=== PATIENT | male | born 1975 | race African-American/Black ===

== ENCOUNTER 2017-03-30 15:43 | Observation (INO) | payer SELFPAY ==
[2017-03-30 15:51] VITALS: BMI 24.0
[2017-03-30] MEDS ORDERED: NITROSTAT SL PRN (16:08)
--- NOTE | 2017-03-30 16:13 | DR.CP ---
HPI - Time Seen Time seen: 15:50 - PCP Primary Care Physician: NFD - Complaint Chief Complaint Doctor Comments: Patient admits to chest pain while at work today. He states that the pain was inferior left breast, intermittent crampy like. Denies history of cardiac disease. Admits to high cholesterol. He smokes but not a pack per day. He denies alcohol. There is no family history of cardiac disease. Chief Complaint:: PT C/O CHEST PAIN FOR ABOUT THE LAST 30 MINUTES. PT STATES IT FEELS LIKE PRESSURE. - Source History Provided: Patient - Mode of Arrival Mode of Arrival: Ambulatory - Timing Onset of Chief Complaint: 03/30/17 - Location Chest Pain Radiation Location: None - Associated Signs and Symptoms Associated Signs and Symptoms: None PMH - PMH Past Medical History: Yes Past Medical History: Dyslipidemia Past Surgical History: No - Family History History of Family Medical Conditions: Yes Family Medical History: Cancer - Social History Type of Tobacco Use: None Does any household member use tobacco: No Alcohol Use: Occasionally Do you use any recreational Drugs:: No Lives With: Significant Other Lives Where: Home - infectious screening In the last 2 months have you had wt loss of >10#?: NO Have you had fever, night sweats or hemotysis?: No Have you traveled outside the country in the last 6 months?: No Isolation: Standard ROS - Review of Systems Eyes: No Symptoms Reported ENTM: No Symptoms Reported Respiratoy: No Symptoms Reported Cardiovascular: No Symptoms Reported Gastrointestinal/Abdominal: No Symptoms Reported Genitourinary: No Symptoms Reported Neurological: No Symptoms Reported Musculoskeletal: No Symptoms Reported Integumentary: No Symptoms Reported Hematologic/Lymphatic: No Symptoms Reported Endocrine: No Symptoms Reported Psychiatric: No Symptoms Reported All Other Systems: Reviewed and Negative PE - Vitals Vitals: Temperature 97.4 F Pulse Rate [Apical] 61 Pulse Rate 80 Respiratory Rate 14 Blood Pressure [Left Arm] 117/68 Blood Pressure 145/80 O2 Sat by Pulse Oximetry 100 - General Limitations: No Limitations General Appearance: Alert, In No Apparent Distress - Head Head Exam: Normal Inspection, Atraumatic - Eyes Eye exam: Normal Appearance, PERRL, EOMI - ENT ENT Exam: Normal Exam - Chest Chest Inspection: Normal Inspection, Symmetric Chest Wall Rise - Respiratory Respiratory Exam: Normal Lung Sounds Bilat Respiratory Exam: Bilateral Clear to Auscultation - Cardiovascular Cardiovascular Exam: Regular Rate, Normal Rhythm Pulse: Normal Edema: Normal - Abdominal Exam Abdominal Exam: Normal Inspection, Normal Bowel Sounds Abdominal Tenderness: negative: RUQ, RLQ, LUQ, LLQ, Epigastrium, Suprapubic, Diffuse, Mild, Moderate, Severe, Other - Extremities Extremities Exam: Normal Inspection, Full ROM - Back Back Exam: Normal Inspection - Neurologic Neurological Exam: Alert, Oriented X3, CN II-XII Intact - Psychiatric Psychiatric Exam: Normal Affect - Skin Skin Exam: Warm, Dry, Intact Course - Reevaluation 1st: Improved - Consultation Called: 17:30 (Dr Orozco agreed to admit for chest pain protocol) ROR - Labs Reviewed Result Diagrams: 03/30/17 16:28 03/30/17 16:28 Laboratory: WBC 4.9 X10^3/uL (3.6-10.0) 03/30/17 16:28 RBC 3.97 X10^6/uL (4.7-6.0) L 03/30/17 16:28 Hgb 12.5 g/dL (13.5-18.0) L 03/30/17 16:28 Hct 36.8 % (42.0-54.0) L 03/30/17 16:28 MCV 92.9 fL (80.0-100.0) 03/30/17 16:28 MCH 31.6 pg (27.0-34.0) 03/30/17 16:28 MCHC 34.0 g/dL (33.0-35.0) 03/30/17 16:28 RDW 12.2 % (11.6-16.5) 03/30/17 16:28 Plt Count 213 X10^3/uL (150.0-450.0) 03/30/17 16:28 MPV 8.8 fL (7.4-11.0) 03/30/17 16:28 Neut % 42.4 % (42.0-75.0) 03/30/17 16:28 Lymph % 47.7 % (21.0-51.0) 03/30/17 16:28 [place] % 7.1 % (0.0-13.0) 03/30/17 16:28 Eos % 1.6 % (0.9-2.9) 03/30/17 16:28 Baso % 1.2 % (0.2-1.0) H 03/30/17 16:28 Neut # 2.1 x10^3/uL (2.2-4.8) L 03/30/17 16:28 Lymph # 2.4 X10^3/uL (1.3-2.9) 03/30/17 16:28 [place] # 0.3 x10^3/uL (0.3-0.8) 03/30/17 16:28 Eos # 0.1 x10^3/uL (0.0-0.2) 03/30/17 16:28 Baso # 0.1 X10^3/uL (0.0-0.1) 03/30/17 16:28 Absolute Nucleated RBC 0.0 /100WBC 03/30/17 16:28 INR Target Range - 03/30/17 16:28 INR 0.91 (0.8-1.3) 03/30/17 16:28 Sodium 140 mmol/L (136-145) 03/30/17 16:28 Corrected Sodium TNP 03/30/17 16:28 Potassium 4.2 mmol/L (3.5-5.1) 03/30/17 16:28 Chloride 104 mmol/L (98-107) 03/30/17 16:28 Carbon Dioxide 30.7 mmol/L (21-32) 03/30/17 16:28 BUN 14 mg/dL (7-18) 03/30/17 16:28 Creatinine 1.36 mg/dL (0.70-1.30) H 03/30/17 16:28 Est GFR (MDRD) Af Amer > 60 (>60) 03/30/17 16:28 Est GFR (MDRD) Non-Af > 60 (>60) 03/30/17 16:28 Glucose 109 mg/dL (65-99) H 03/30/17 16:28 Calcium 9.1 mg/dL (8.5-10.1) 03/30/17 16:28 Corrected Calcium TNP 03/30/17 16:28 Magnesium 1.7 mg/dL (1.7-2.9) 03/30/17 16:28 Total Bilirubin 0.30 mg/dL (0.2-1.0) 03/30/17 16:28 AST 30 Units/L (15-37) 03/30/17 16:28 ALT 62 Units/L (12-78) 03/30/17 16:28 Alkaline Phosphatase 28 Units/L (46-116) L 03/30/17 16:28 Creatine Kinase 304 Units/L (39-308) 03/30/17 16:28 CK-MB (CK-2) 1.9 ng/mL (0-4.0) 03/30/17 16:28 CK/CKMB % Calc 0.6 % (<4) 03/30/17 16:28 Troponin I < 0.02 ng/mL (0-1.5) 03/30/17 16:28 Total Protein 7.4 g/dL (6.4-8.2) 03/30/17 16:28 Albumin 3.4 g/dL (3.4-5.0) 03/30/17 16:28 Globulin 4.0 g/dL (2.5-4.5) 03/30/17 16:28 Albumin/Globulin Ratio 0.9 Ratio (1.1-2.1) L 03/30/17 16:28 - XRAY XRAY Interpreted by: Radiologist (Chest: negative) - Diagnosis Discharge Problem: Chest pain Qualifiers: Chest pain type: unspecified Qualified Code(s): R07.9 - Chest pain, unspecified - Discharge Plan Condition: Stable - Follow ups/Referrals Follow ups/Referrals: NFD,None [Primary Care Provider] - 3 days - Instructions
[2017-03-30] MEDS: ASPIRIN PO SCH (16:21)
[2017-03-30 16:39] LABS: BASOPHILS # (AUTO) 0.1 X10^3/uL (0.0-0.1); BASOPHILS % (AUTO) 1.2 % (0.2-1.0); EOSINOPHILS # (AUTO) 0.1 x10^3/uL (0.0-0.2); EOSINOPHILS % (AUTO) 1.6 % (0.9-2.9); HEMATOCRIT 36.8 % (42.0-54.0); HEMOGLOBIN 12.5 g/dL (13.5-18.0); LYMPHOCYTES # (AUTO) 2.4 X10^3/uL (1.3-2.9); LYMPHOCYTES % (AUTO) 47.7 % (21.0-51.0); MEAN CORPUSCULAR HEMOGLOBIN 31.6 pg (27.0-34.0); MEAN CORPUSCULAR VOLUME 92.9 fL (80.0-100.0); MEAN PLATELET VOLUME 8.8 fL (7.4-11.0); MONOCYTES # (AUTO) 0.3 x10^3/uL (0.3-0.8); MONOCYTES % (AUTO) 7.1 % (0.0-13.0); NEUTROPHILS # (AUTO) 2.1 x10^3/uL (2.2-4.8); NEUTROPHILS % (AUTO) 42.4 % (42.0-75.0); PLATELET COUNT 213 X10^3/uL (150.0-450.0); RED BLOOD COUNT 3.97 X10^6/uL (4.7-6.0); RED CELL DISTRIBUTION WIDTH 12.2 % (11.6-16.5); WHITE BLOOD COUNT 4.9 X10^3/uL (3.6-10.0)
[2017-03-30 16:52] LABS: BLOOD UREA NITROGEN 14 mg/dL (7-18); CALCIUM 9.1 mg/dL (8.5-10.1); CARBON DIOXIDE 30.7 mmol/L (21-32); CHLORIDE 104 mmol/L (98-107); CREATININE 1.36 mg/dL (0.70-1.30); SODIUM 140 mmol/L (136-145); TROPONIN I < 0.02 ng/mL (0-1.5); eGFR BLACK RACES > 60 (>60); eGFR NON BLACK RACES > 60 (>60)
[2017-03-30 16:57] LABS: ALANINE AMINOTRANSFERASE 62 Units/L (12-78); ALBUMIN 3.4 g/dL (3.4-5.0); ALKALINE PHOSPHATASE 28 Units/L (46-116); ASPARTATE AMINO TRANSFERASE 30 Units/L (15-37); CKMB % 0.6 % (<4); CREATINE KINASE 304 Units/L (39-308); CREATINE KINASE MB 1.9 ng/mL (0-4.0); MAGNESIUM 1.7 mg/dL (1.7-2.9); TOTAL PROTEIN 7.4 g/dL (6.4-8.2)
[2017-03-30] MEDS: NS 1000 ML 1,000 ML IV SCH (16:58)
--- NOTE | 2017-03-30 17:12 | RAD ---
HISTORY: Hyperlipidemia. Study: Portable chest. Comparison: None. Findings: The trachea is midline. The cardiac silhouette is unremarkable. No obvious focal consolidation, ple ural effusion, or pneumothorax.. The bony thorax is unremarkable. IMPRESSION: No acute cardiopulmonary disease. Reported By:
[2017-03-30] MEDS ORDERED: ZOFRAN INJ 4 MG VIAL IVP PRN (17:43)
[2017-03-30 22:21] LABS: CKMB % 0.6 % (<4); CREATINE KINASE 262 Units/L (39-308); CREATINE KINASE MB 1.6 ng/mL (0-4.0); TROPONIN I < 0.02 ng/mL (0-1.5)
[2017-03-31] MEDS: NS 1000 ML 1,000 ML IV SCH ×2 (00:09→10:39)
[2017-03-31 05:17] LABS: BASOPHILS # (AUTO) 0.1 X10^3/uL (0.0-0.1); BASOPHILS % (AUTO) 1.4 % (0.2-1.0); EOSINOPHILS # (AUTO) 0.1 x10^3/uL (0.0-0.2); EOSINOPHILS % (AUTO) 2.3 % (0.9-2.9); HEMOGLOBIN 12.6 g/dL (13.5-18.0); LYMPHOCYTES # (AUTO) 2.5 X10^3/uL (1.3-2.9); LYMPHOCYTES % (AUTO) 50.8 % (21.0-51.0); MEAN CORPUSCULAR HGB CONC 34.2 g/dL (33.0-35.0); MEAN CORPUSCULAR VOLUME 93.7 fL (80.0-100.0); MEAN PLATELET VOLUME 9.2 fL (7.4-11.0); MONOCYTES # (AUTO) 0.4 x10^3/uL (0.3-0.8); NEUTROPHILS # (AUTO) 1.8 x10^3/uL (2.2-4.8); NEUTROPHILS % (AUTO) 36.5 % (42.0-75.0); PLATELET COUNT 232 X10^3/uL (150.0-450.0); RED BLOOD COUNT 3.95 X10^6/uL (4.7-6.0); RED CELL DISTRIBUTION WIDTH 12.4 % (11.6-16.5); WHITE BLOOD COUNT 4.9 X10^3/uL (3.6-10.0)
[2017-03-31 05:20] LABS: ALANINE AMINOTRANSFERASE 55 Units/L (12-78); ALBUMIN 2.8 g/dL (3.4-5.0); ALKALINE PHOSPHATASE 20 Units/L (46-116); ASPARTATE AMINO TRANSFERASE 25 Units/L (15-37); BLOOD UREA NITROGEN 17 mg/dL (7-18); CALCIUM 8.4 mg/dL (8.5-10.1); CARBON DIOXIDE 26.6 mmol/L (21-32); CHLORIDE 106 mmol/L (98-107); CKMB % 0.7 % (<4); COR CA(FOR HYPOALB) 9.4 mg/dL (8.5-10.1); CREATINE KINASE 213 Units/L (39-308); CREATINE KINASE MB 1.5 ng/mL (0-4.0); CREATININE 1.01 mg/dL (0.70-1.30); SODIUM 140 mmol/L (136-145); TOTAL PROTEIN 6.5 g/dL (6.4-8.2); TROPONIN I < 0.02 ng/mL (0-1.5); eGFR BLACK RACES > 60 (>60); eGFR NON BLACK RACES > 60 (>60)
[2017-03-31 06:54] LABS: BILIRUBIN,URINE NEGATIVE (NEGATIVE); BLOOD/HEMOGLOBIN,URINE NEGATIVE (NEGATIVE); GLUCOSE, URINE NEGATIVE (NEGATIVE); KETONES,URINE NEGATIVE (NEGATIVE); LEUKOCYTE ESTERASE ,URINE NEGATIVE (NEGATIVE); NITRITES,URINE NEGATIVE (NEGATIVE); PH,URINE 6.5 (5.0 - 8.0); PROTEIN,URINE NEGATIVE (NEGATIVE); UROBILINOGEN,URINE NORMAL (NORMAL)
[2017-03-31 07:02] LABS: APPEARANCE,URINE CLEAR (CLEAR); BACTERIA,URINE NEGATIVE /HPF (NEGATIVE); COLOR,URINE YELLOW (YELLOW); RBC,URINE 0 /HPF (NEGATIVE); SQUAMOUS EPITHELIAL CELL,UR RARE /HPF (NEGATIVE)
--- NOTE | 2017-03-31 07:27 | RAD ---
Examination: Portable AP chest History: Chest pain SOB Comparison reference: 03/30/2017 Findings: Continued normal heart size and cardiac position. The lungs are clear and normally aerated. There is no evidence for pulmonary edema, pneumothorax or large pleural effusion. Impression: No significant interval change or acute process identified. Reported By:
[2017-03-31] MEDS: ASPIRIN PO SCH (08:59)
--- NOTE | 2017-03-31 11:49 | DR.CARTERS ---
Short Stay Summary - Short Stay Summary for: Short Stay Summary for Date of:: 03/31/17 - Admission Date Date of Admission: 03/30/17 - Discharge Date Discharge Date: 03/31/17 - Admission Diagnoses (1) Chest pain Status: Acute - Hospital Course Hospital Course: DAY 1 OF STAY: IS A 41 YEAR OLD BLACK MALE WHO PRESENTED TO THE EMERGENCY ROOM WITH COMPLAINTS OF CHEST PAIN THAT BEGAN 30 MINUTES PRIOR TO ARRIVAL AT ER. HE STATES THAT PAIN IS TO THE INFERIOR LEFT BREAST AND DESCRIBES IT PRESSURE LIKE AND CRAMPING. HE REPORTS THAT PAIN STARTED WHILE HE WAS WORKING. PATIENT DENIES A HISTORY OF CARDIAC DISEASE. HE ADMITS TO A HISTORY OF HIGH CHOLESTEROL, BUT IS NOT COMPLAINT WITH MEDICATIONS. HE DENIES ILLICIT USE OF ALCOHOL, DRUGS, OR TOBACCO. ON EXAMINATION, LUNGS WERE CLEAR TO AUSCULTATION. ABDOMEN SOFT, FLAT, AND NON-TENDER WITH NORMAL BOWEL SOUNDS NOTED IN ALL QUADRANTS. ON ARRIVAL, VITAL SIGNS WERE 97.4-80-20-97%-145/80. LABS, EKG , AND CHEST XRAY OBTAINED. ABNORMAL LAB VALUES INCLUDE THE FOLLOWING: RBC 3.97, HGB 12.5, HCT 36.8, CREATININE 1.36, GLUCOSE 109, ALK PHOS 28, A/G RATIO 0.9. CARDIAC ENZYMES UNREMARKABLE. URINALYSIS UNREMARKABLE. EKG REPORTED SINUS RHYTHM WITH HR 72. CHEST XRAY REPORTED NO ACUTE CARDIOPULMONARY DISEASE. PATIENT WAS GIVEN ASA 325MG AND NITROSTAT 0.4MG WITH NO IMPROVEMENT IN PAIN NOTED. WE ADMITTED PATIENT TO THE HOSPITAL FOR FURTHER TREATMENT AND EVALUATION. WE PLANNED TO FOLLOW UP WITH SERIAL CARDIAC ENZYMES AND EKG. WE WILL REPEAT A CBC, CMP, AND CHEST XRAY IN THE MORNING AND CONTINUE TO MONITOR PATIENT. DAY 2 OF STAY: PATIENT IS ALERT AND ORIENTED, LYING IN BED ON MORNING ROUNDS. PATIENT'S FAMILY MEMBER IS AT BEDSIDE. TODAY, PATIENT HAS NO COMPLAINTS. HE DENIES CHEST PAIN OR SHORTNESS OF BREATH. ON EXAMINATION, LUNGS ARE CLEAR TO AUSCULTATION. ABDOMEN IS SOFT, FLAT, AND NON-TENDER WITH NORMAL BOWEL SOUNDS NOTED IN ALL QUADRANTS. HE IS NOTED ON TELEMETRY WITH SINUS RHYTHM NOTED ON MONITOR. HIS VITAL SIGNS THIS MORNING ARE 98.0-60-20-97%-114/61. ABNORMAL LAB VALUES TODAY INCLUDE THE FOLLOWING: RBC 3.95, HGB 12.6, HCT 37, CALCIUM 8.4, ALK PHOS 20, ALBUMIN 2.8, A/G RATIO 0.8. MOST RECENT EKG REPORTED SINUS BRADYCARDIA WITH HR 49. WE OBTAINED AN ECHO CARDIOGRAM. IT REPORTED AND EJECTION FRACTION OF %. WE DISCUSSED WITH PATIENT THE NEED FOR AN OUTPATIENT NUCLEAR STRESS TEST. PATIENT VERBALIZED UNDERSTANDING AND AGREES TO FOLLOW UP WITH US. WE PLANNED FOR DISCHARGE. INSTRUCTIONS FOR MEDICATION AND FOLLOW UP DISCUSSED WITH PATIENT AND FAMILY. BOTH VERBALIZED UNDERSTANDING. PATIENT WAS DISCHARGED HOME IN STABLE CONDITION WITH FAMILY WITH A NEW PRESCRIPTION FOR ECOTRIN 325MG PO DAILY. PATIENT WAS INSTRUCTED THAT [facility] FROM OUR OFFICE WILL CALL HIM TO SCHEDULE FOR A NUCLEAR STRESS TEST. - Discharge Medications Discharge Medications: Aspirin EC [ECOTRIN 325 MG *] 325 mg PO DAILY #90 tab 03/31/17 [Rx] - Discharge Plan Disposition: 01 HOME, SELF-CARE Condition: Stable Prescriptions: Aspirin EC [ECOTRIN 325 MG *] 325 mg PO DAILY #90 tab - Follow up/Referrals Follow up/Referrals: Edwin Orozco [STAFF PHYSICIAN] - - Instructions Instructions: Chest Pain Observation Additional Instructions: ACTIVITY TOLERATED. LOW SODIUM/LOW FAT DIET. EDD FROM 'S OFFICE WILL CALL YOU TO SCHEDULE A NUCLEAR STRESS TEST.
[2017-03-31 12:30] VITALS: BP 113/52
== END 2017-03-31 16:05 | disposition home or self-care (01) ==
LOC: ER 15:58 → MED/SURG 17:34
PROVIDERS: ADMIT Internal Medicine; ATTEND Internal Medicine
DX: R07.89 Other chest pain (principal); E78.00 Pure hypercholesterolemia, unspecified; R06.02 Shortness of breath
CPT/HCPCS: 36415; 71010; 80053; 81001; 82550; 82553; 83735; 84484; 85025; 85610; 93005; 93306; 94760; 96365; 96367; 99284; A4216; A4222; G0378